=== PATIENT | female | born 2000 | race Caucasian/White ===

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

== ENCOUNTER 2019-02-16 11:52 | Outpatient (CLI) | payer BC ==
[~2019-02-16] VITALS: Ht 174 cm; Wt 97.3 kg
[~2019-02-16 11:52] MED LIST: IBUP-1222 PO
[2019-02-16 12:20] VITALS: BP 129/80
== END 2019-02-16 13:12 | disposition home or self-care (01) ==
LOC: LDOP 11:52
PROVIDERS: ATTEND Obstetrics & Gynecology
DX: O46.8X3 Other antepartum hemorrhage, third trimester (principal); Z3A.37 37 weeks gestation of pregnancy
CPT/HCPCS: 59025; 99211; G0463

== ENCOUNTER 2019-02-19 12:08 | Inpatient (IN) | payer BC ==
[~2019-02-19] VITALS: Ht 172.7 cm; Wt 98.0 kg
[2019-02-19] MEDS ORDERED: OXYTOCIN 30U/ 0.9% NaCL 500ML 500 ML IV ONE (12:13)
[2019-02-19] MEDS ORDERED: LACTATED RINGERS 1,000 ML IV SCH (12:13)
[2019-02-19] MEDS ORDERED: D5%-LACTATED RINGERS 1,000 ML IV SCH (12:13)
[2019-02-19] MEDS ORDERED: NEWBORN KIT ONE (12:16)
[2019-02-19] MEDS ORDERED: MISOPROSTOL 200 MCG TABLET ONE (12:16)
[2019-02-19] MEDS ORDERED: OXYTOCIN 30U/ 0.9% NaCL 500ML 500 ML ONE ×2 (12:16→15:06)
[2019-02-19] MEDS ORDERED: LIDOCAINE 1%, 20ML ONE (12:16)
[2019-02-19] MEDS ORDERED: FENTANYL PF 100 MCG/2ML IV PRN (12:30)
[2019-02-19] MEDS ORDERED: ONDANSETRON 2MG/ML, 2ML IVPush PRN (12:30)
[2019-02-19] MEDS ORDERED: TERBUTALINE 1 MG/ML, 1ML IVPush PRN (12:30)
[2019-02-19] MEDS ORDERED: TERBUTALINE 1 MG/ML, 1ML SQ PRN (12:30)
[2019-02-19] MEDS ORDERED: FENTANYL PF 100 MCG/2ML IVPush PRN (12:30)
[2019-02-19] MEDS ORDERED: PLEASE ENTER HEIGHT AND WEIGHT MC SCH (12:30)
[2019-02-19 12:38] LABS: BASOPHILS # (AUTO) 0.04 x10^3/uL (0-0.3); BASOPHILS % (AUTO) 0 % (0-1); EOSINOPHILS # (AUTO) 0.21 x10^3/uL (0-0.8); EOSINOPHILS % (AUTO) 2 % (1-7); LYMPHOCYTES # (AUTO) 1.81 x10^3/uL (1-6.1); LYMPHOCYTES % (AUTO) 15 % (22-44); MD NO; MEAN CORPUSCULAR HEMOGLOBIN 29.5 pg (27.0-34.8); MEAN CORPUSCULAR HGB CONC 32.4 g/dL (32.4-35.8); MEAN CORPUSCULAR VOLUME 91.3 fL (80-100); MEAN PLATELET VOLUME 9.6 fL (7.4-10.4); MONOCYTES # (AUTO) 0.52 x10^3/uL (0-1.4); MONOCYTES % (AUTO) 4 % (2-9); NEUTROPHILS # (AUTO) 9.31 x10^3/uL (1.8-8.0); NEUTROPHILS % (AUTO) 78 % (42-75); PLATELET COUNT 273 x10^3/uL (130-400); RED BLOOD COUNT 3.91 x10^6/uL (3.82-5.3); RED CELL DISTRIBUTION WIDTH 16.5 % (9.6-15.2)
[2019-02-19] MEDS ORDERED: BISACODYL 10 MG SUPP PR PRN (15:00)
[2019-02-19] MEDS ORDERED: ONDANSETRON 2MG/ML, 2ML IV PRN (15:00)
[2019-02-19] MEDS ORDERED: IBUPROFEN 800 MG TABLET PO PRN (15:00)
[2019-02-19] MEDS ORDERED: OXYcodone/APAP 5/325MG TABLET PO PRN (15:00)
[2019-02-19] MEDS ORDERED: DOCUSATE 100 MG CAPSULE PO PRN (15:00)
[2019-02-19] MEDS ORDERED: RHOGAM FROM BLOOD BANK 1 NOTE EA IM/IV ONE (15:00)
[2019-02-19] MEDS ORDERED: HYDROcodone/APAP 5/325 TABLET PO PRN (15:00)
[2019-02-19] MEDS ORDERED: ACETAMINOPHEN 325 MG TABLET PO PRN (15:00)
[2019-02-19] MEDS ORDERED: MISOPROSTOL 200 MCG TABLET PR PRN (15:00)
[2019-02-19] MEDS: OXYTOCIN 30U/ 0.9% NaCL 500ML 500 ML IV SCH (15:10)
[2019-02-19 16:30] VITALS: BP 110/69
[2019-02-19 19:45] VITALS: BP 121/66
[2019-02-19 22:52] LABS: MEAN CORPUSCULAR HEMOGLOBIN 29.9 pg (27.0-34.8); MEAN CORPUSCULAR HGB CONC 33.1 g/dL (32.4-35.8); MEAN CORPUSCULAR VOLUME 90.5 fL (80-100); MEAN PLATELET VOLUME 9.1 fL (7.4-10.4); PLATELET COUNT 271 x10^3/uL (130-400); RED BLOOD COUNT 3.94 x10^6/uL (3.82-5.3); RED CELL DISTRIBUTION WIDTH 16.5 % (9.6-15.2)
[2019-02-19 23:19] LABS: BASOPHILS # (AUTO) 0.07 x10^3/uL (0-0.3); BASOPHILS % (AUTO) 1 % (0-1); EOSINOPHILS # (AUTO) 0.01 x10^3/uL (0-0.8); EOSINOPHILS % (AUTO) 0 % (1-7); LYMPHOCYTES # (AUTO) 2.42 x10^3/uL (1-6.1); LYMPHOCYTES % (AUTO) 17 % (22-44); MD SCAN; MONOCYTES # (AUTO) 0.94 x10^3/uL (0-1.4); MONOCYTES % (AUTO) 6 % (2-9); NEUTROPHILS % (AUTO) 77 % (42-75)
[2019-02-20] MEDS: OXYTOCIN 30U/ 0.9% NaCL 500ML 500 ML IV SCH (00:49)
[2019-02-20 01:30] VITALS: BP 115/72
[2019-02-20 04:15] VITALS: BP 112/73
[2019-02-20 08:07] VITALS: BP 122/85
[2019-02-20] MEDS ORDERED: PRENATAL VIT/IRON/FA 1 EACH TABLET PO SCH (09:00)
[2019-02-20] MEDS ORDERED: IBUP-1223 PO (13:58)
== END 2019-02-20 15:25 | disposition home or self-care (01) | DRG 807 ==
LOC: LDOP 12:08 → LDIP 12:20 → 2NW 16:21
PROVIDERS: ADMIT Obstetrics & Gynecology; ATTEND Obstetrics & Gynecology
PROC: 10E0XZZ Delivery of Products of Conception, External Approach (ICD-10-PCS; principal; 2019-02-19)
PROC: 10907ZC Drainage of Amniotic Fluid, Therapeutic from Products of Conception, Via Natural or Artificial Opening (ICD-10-PCS; 2019-02-19)
DX: O99.354 Diseases of the nervous system complicating childbirth (principal); Z37.0 Single live birth; Z3A.37 37 weeks gestation of pregnancy; Z88.8 Allergy status to other drugs, medicaments and biological substances; G43.909 Migraine, unspecified, not intractable, without status migrainosus; O71.82 Other specified trauma to perineum and vulva
CPT/HCPCS: 36415; 85025; 86592; 86850; 86900; G0378; J2590